=== PATIENT | male | born 1965 | race Caucasian/White ===

== ENCOUNTER 2019-07-27 07:27 | Emergency (ER) | payer OTHER ==
[~2019-07-27] VITALS: Ht 167.6 cm; Wt 127.3 kg
[2019-07-27] MEDS ORDERED: LEVO2TA PO (07:36)
[2019-07-27] MEDS ORDERED: LOSA25TA14 PO (07:36)
[2019-07-27] MEDS ORDERED: CENT1TAB2 PO (07:37)
[2019-07-27] MEDS ORDERED: METF10004 PO (07:37)
[2019-07-27] MEDS ORDERED: CHOL100029 PO (07:37)
[2019-07-27] MEDS ORDERED: ECOT81TA5 PO (07:37)
[2019-07-27] MEDS ORDERED: SYNT50TA PO (07:37)
--- NOTE | 2019-07-27 07:56 | ECGEPIP ---
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
--- NOTE | 2019-07-27 08:43 | REP ---
Left hand series: Four views. History: Left hand pain. Findings: Four views of the left hand demonstrate overall mineralization is normal. No fracture is visible. There is minimal spurring at the DIP joints of the fingers. Dorsal soft tissue swelling is seen over the metacarpals on the lateral radiograph. Impression: No traumatic abnormality noted. Electronically Signed by Raul Posey MD 07/27/2019 08:35 A
--- NOTE | 2019-07-27 08:44 | REP ---
Right elbow series: Four views. History: Right elbow pain. Findings: Four views right elbow demonstrate marked soft tissue swelling diffusely about the elbow and proximal forearm. There is lateral epicondylar spurring. There is no evidence of joint effusion. There is a fairly large olecranon process spur as well. No evidence of joint effusion. Impression: Olecranon and lateral epicondylar spurring. Diffuse marked soft tissue swelling. No acute bony abnormality. Electronically Signed by Raul Posey MD 07/27/2019 08:36 A
[2019-07-27 08:54] LABS: BASO # 0.1 10^3/uL (0.0-0.2); BASO % 0.7 % (0.0-1.0); EOS % 0.1 % (0.0-3.0); HEMATOCRIT 44.4 % (42.0-52.0); HEMOGLOBIN 15.3 g/dl (13.5-17.5); LYMPH # 2.5 10^3/uL (1.5-5.0); LYMPH % 15.3 % (24.0-44.0); MEAN CORPUSCULAR HEMOGLOBIN 31.4 pg (27.0-33.0); MEAN CORPUSCULAR HGB CONC 34.5 g/dl (32.0-36.5); MEAN CORPUSCULAR VOLUME 91.2 fl (80.0-96.0); MONO # 1.3 10^3/uL (0.0-0.8); MONO % 7.9 % (0.0-5.0); NEUTROPHILS # 12.1 10^3/uL (1.5-8.5); NEUTROPHILS % 75.3 % (36.0-66.0); PLATELET COUNT, AUTOMATED 292 10^3/uL (150-450); RED BLOOD COUNT 4.87 10^6/uL (4.30-6.10)
[2019-07-27] MEDS ORDERED: NS 1,000 ML IV ONE (09:00)
[2019-07-27 09:05] LABS: INR 0.95; PARTIAL THROMBOPLASTIN TIME 26.3 SECONDS (25.0-38.4); PROTHROMBIN TIME 12.4 SECONDS (11.8-14.0)
[2019-07-27 09:16] LABS: BLOOD UREA NITROGEN 13 MG/DL (7-18); CALCIUM LEVEL 9.4 MG/DL (8.5-10.1); CARBON DIOXIDE LEVEL 23 MEQ/L (21-32); CHLORIDE LEVEL 106 MEQ/L (98-107); CK-MB VALUE MASS 3.2 NG/ML (<3.6); CPK CREATINE PHOSPHOKINASE 599 U/L (39-308); CREATININE FOR GFR 0.94 MG/DL (0.70-1.30); GLOMERULAR FILTRATION RATE > 60.0 (>56); GLUCOSE, FASTING 273 MG/DL (70-100); MB/CK RELATIVE INDEX 0.53 (< OR =4); POTASSIUM SERUM 4.6 MEQ/L (3.5-5.1); SODIUM LEVEL 139 MEQ/L (136-145); TROPONIN I < 0.02 NG/ML (< 0.10)
[2019-07-27] MEDS ORDERED: LORazepam 2 MG/ML VIAL (J2060) IV STA ×2 (09:51→10:56)
--- NOTE | 2019-07-27 09:51 | REP ---
CT abdomen and pelvis without IV or oral contrast: History: Sternal pain, anterior rib pain, pulmonary nodule. CT findings: The patient apparently was unable to raise his hands out of the scanned field. 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 No pleural effusion or upper abdominal ascites is seen. The liver and the spleen are normal in size, homogeneous in texture. There is a cyst in the upper pole right kidney which measures 2.6 cm in greatest diameter. There is another cyst in the upper pole left kidney measuring 2.3 cm in diameter. No intrarenal mass or hydronephrosis seen. No calculus is observed. There are two calcifications in the body of the pancreas, one in the tail and the other in the head. These may reflect previous chronic pancreatitis. No peripancreatic edema or fluid is seen. No retroperitoneal mass or adenopathy is seen. A normal appendix is noted in the right lower abdomen. Urinary bladder is unremarkable. There are dystrophic calcifications in the prostate gland. Seminal vesicles are normal in appearance. No abdominal wall defect is seen. No rib or other fracture is appreciated. Impression: No post traumatic abnormality in the abdomen or pelvis. There are two focal pancreatic calcifications question previous pancreatitis. Small bilateral renal cysts. Electronically Signed by Raul Posey MD 07/27/2019 09:58 A
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
[2019-07-27] MEDS ORDERED: KETOROLAC 30 MG/ML VIAL (J1885) IV ONE (10:00)
[2019-07-27] MEDS ORDERED: ACETAMINOPHEN 325 MG TAB PO ONE (11:00)
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
[2019-07-27] MEDS ORDERED: OXAZEPAM 15 MG CAP PO ONE (12:15)
[2019-07-27] MEDS ORDERED: OXAZ30CA2 PO (13:10)
[2019-07-27 13:35] VITALS: BP 133/75
--- NOTE | 2019-07-31 14:03 | ED PDOC ---
Post-Departure Follow-Up dr francisco faxed formal report of ct chest without contrast Deann Nunez MD Jul 31, 2019 14:03
--- NOTE | 2019-07-31 14:11 | ED PDOC ---
Post-Departure Follow-Up dr francisco faxed formal report of rib films fo rfiu Deann Nunez MD Jul 31, 2019 14:11
== END 2019-07-27 13:55 | disposition home or self-care (01) ==
LOC: M ED 07:27
DX: S60.222A Contusion of left hand, initial encounter (principal); S20.219A Contusion of unspecified front wall of thorax, initial encounter; S50.01XA Contusion of right elbow, initial encounter; V49.49XA Driver injured in collision with other motor vehicles in traffic accident, initial encounter; Y92.410 Unspecified street and highway as the place of occurrence of the external cause; R91.1 Solitary pulmonary nodule; I10 Essential (primary) hypertension; E11.9 Type 2 diabetes mellitus without complications; E03.9 Hypothyroidism, unspecified; Z79.899 Other long term (current) drug therapy; Z79.890 Hormone replacement therapy; Z79.84 Long term (current) use of oral hypoglycemic drugs; Z79.82 Long term (current) use of aspirin; Z87.891 Personal history of nicotine dependence
CPT/HCPCS: 70450; 71111; 71250; 72125; 73080; 73130; 74176; 80048; 82550; 82553; 84484; 85025; 85610; 85730; 93005; 93041; 94760; 96361; 96374; 96375; 96376; 99285; G0480; J1885; J2060